=== PATIENT | female | born 1985 | race Caucasian/White ===

== ENCOUNTER 2016-07-03 09:12 | Emergency (ER) | payer SELFPAY ==
[~2016-07-03] VITALS: Ht 152.4 cm; Wt 49.9 kg
[2016-07-03 09:22] VITALS: BP 110/77
== END 2016-07-03 12:02 | disposition home or self-care (01) ==
LOC: ER 09:13
DX: Z11.1 Encounter for screening for respiratory tuberculosis (principal)
CPT/HCPCS: 71020

== ENCOUNTER 2016-07-09 17:00 | Emergency (ER) | payer SELFPAY ==
[~2016-07-09] VITALS: Ht 165.1 cm; Wt 49.9 kg
[2016-07-09 17:33] VITALS: BP 117/70
[2016-07-09] MEDS ORDERED: IBUPROFEN 600 MG TAB PO ONE ×2 (19:53→20:15)
[2016-07-09] MEDS ORDERED: CYCLOBENZAPRINE HCL 10 MG TAB PO ONE (20:15)
== END 2016-07-09 20:10 | disposition home or self-care (01) ==
LOC: EDUNIT# 17:00 → ER 17:02
DX: S16.1XXA Strain of muscle, fascia and tendon at neck level, initial encounter (principal); S39.012A Strain of muscle, fascia and tendon of lower back, initial encounter; S50.01XA Contusion of right elbow, initial encounter; S50.11XA Contusion of right forearm, initial encounter; V49.9XXA Car occupant (driver) (passenger) injured in unspecified traffic accident, initial encounter; Y93.89 Activity, other specified; Y99.8 Other external cause status; Y92.488 Other paved roadways as the place of occurrence of the external cause
CPT/HCPCS: 72125